=== PATIENT | male | born 1955 | race Caucasian/White ===

== ENCOUNTER 2016-07-03 08:54 | Outpatient (CLI) | payer MEDICARE ==
[~2016-07-03 08:54] MED LIST: ASPIRIN 325MG325 MG PO; ASPIRIN81 MG PO; BACTRIM 400 MG-1 TAB PO; BACTRIM DS 8001 TA1 PO; CIPRO 500MG TA500 MG PO; CIPROFLOXACIN500 MG PO; CLOPIDOGREL75 MG PO; COREG 12.5 MG12.5 MG PO; DIGITEK125 MCG PO; EFFIENT10 MG PO; JANUMET 1000 MG1 TAB PO; JARDIANCE10 MG PO; KEFLEX500 M1 PO; LEVAQUIN500 MG PO; LEVEMIR 10100 UNITS/ SC; LEVOTHYROXINE0.05 MG PO; LIPITOR20 MG PO; LISINOPRIL 10MG10 MG PO; METFORMIN HCL1000 MG PO; METFORMIN1000 MG PO; Novolog100 U/ML SC; SMZ-TMP 800 MG-1 TAB PO; TAMSULOSIN HYD0.4 MG PO; TESSALON PERLE100 M1 PO; WARFARIN SOD5 MG PO; XARELTO20 MG PO
[2016-09-28] MEDS ORDERED: PLAVIX 75MG TAB75 MG PO (14:11)
[2016-09-29] MEDS ORDERED: TAMSULOSIN HCL0.4 MG PO (10:34)
[2016-09-29] MEDS ORDERED: ATORVASTATIN 4040 MG PO (10:52)
[2016-09-29] MEDS ORDERED: WARFARIN SOD5 MG PO ×2 (11:12→11:13)
[2016-09-30] MEDS ORDERED: LEVAQUIN 750 M750 MG PO (09:11)
== END 2016-07-03 10:08 ==
LOC: ACC 08:54
DX: I48.2 Chronic atrial fibrillation (principal); Z79.01 Long term (current) use of anticoagulants; Z51.81 Encounter for therapeutic drug level monitoring
CPT/HCPCS: G0463

== ENCOUNTER → 2017-02-16 | Outpatient (CLI) | payer MEDICARE ==
[~2017-02-16] MED LIST changes: +ATORVASTATIN 4040 MG PO; +LEVAQUIN 750 M750 MG PO; +PLAVIX 75MG TAB75 MG PO; +TAMSULOSIN HCL0.4 MG PO
== END ==
LOC: LAB 16:58
DX: N39.0 Urinary tract infection, site not specified (principal)

== ENCOUNTER 2017-04-28 07:58 | Emergency (ER) | payer MEDICARE ==
[~2017-04-28] VITALS: Ht 193 cm; Wt 113.4 kg
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
--- OUTSIDE RECORDS SUMMARY | 2017-04-28 08:08 | External Medical Summary Rpt | CCD ---
Author Author , JOSE GARCIA Address Unknown Phone [email or web address] Purpose Continuity of Care Document - 10-12-2016 [...]
--- OUTSIDE RECORDS SUMMARY | 2017-04-28 08:09 | External Medical Summary Rpt | CCD ---
Demographics Preferred Language Nepali Marital Status Unknown Moravian Affiliation Unknown Race Unknown Ethnic Group Unknown Author Author JOES Address Unknown Phone [email or web address] Purpose Continuity of Care Document - through 2016
--- OUTSIDE RECORDS SUMMARY | 2017-04-28 08:09 | External Medical Summary Rpt | CCD ---
Demographics Preferred Language Latvian Marital Status Unknown Denominational Affiliation Unknown Race Unknown Ethnic Group Unknown Author Author JOSE Address Unknown Phone [email or web address] Purpose Continuity of Care Document - through 2016
--- OUTSIDE RECORDS SUMMARY | 2017-04-28 08:10 | External Medical Summary Rpt | CCD ---
Demographics Preferred Language Mozambican Marital Status Unknown Lutheran Affiliation Unknown Race Unknown Ethnic Group Unknown Author Author , JOSE GARCIA Address Unknown Phone Immunization Unable to retrieve immunization data due to connection failure with Immunization Registry. Please try again later.
--- OUTSIDE RECORDS SUMMARY | 2017-04-28 08:10 | External Medical Summary Rpt ---
Author Author JOSE Ramirez, JOSE Ramirez Organization [employer] Address Unknown Phone Unavailable
--- OUTSIDE RECORDS SUMMARY | 2017-04-28 08:10 | External Medical Summary Rpt ---
Author Author JOES Ramirez, JOSE Ramirez Organization [employer] Address Unknown Phone Unavailable
--- OUTSIDE RECORDS SUMMARY | 2017-04-28 08:10 | External Medical Summary Rpt | CCD ---
Demographics Preferred Language Kazakh Marital Status Unknown Buddhist Affiliation Unknown Race Unknown Ethnic Group Unknown Author Author , JOSE GARCIA Address Unknown Phone Immunization Unable to retrieve immunization data due to connection failure with Immunization Registry. Please try again later.
[2017-04-28 08:19] LABS: HEMOGLOBIN 14.8 g/dL (14.1-18.0); LYMPH # 1.6 K/mm3 (0.7-4.5); LYMPH % 12.5 % (10-50)
[2017-04-28 08:22] LABS: URINE BILIRUBIN - DIPSTICK NEGATIVE (NEG); URINE BLOOD 2+ (NEG)
--- NOTE | 2017-04-28 08:26 | Emergency Room Report ---
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 N Clinical Suspician of Infection? N Mental Status: 1 - Regular (Normal Baseline) Sepsis Risk:Low Sepsis Risk Have you (or family members/close friends) recently traveled outside the [place]? N If Yes, where/when: Have you had exposure to infectious disease within the past month? N TB? Other? Specify: Source patient, RN notes reviewed Exam Limitations no limitations Comment Pt reports having left flank pain since 6AM. Pt has Diabetes and a Neurogenic bladder and has to do self catheterization. No fevers at home but severe left flank pain. Last time this happened he had a UTI Cardiac Chest Pain Chest pain indicative of cardiac No ALLERGIES Coded Allergies: No Known Allergies (05/27/16) Home Medications Reported Medications Atorvastatin Calcium (Atorvastatin 40MG) 40 MG PO QHS CLOPIDOGREL BISULFATE (PLAVIX) 75 MG PO DAILY Carvedilol (Coreg 12.5Mg) 12.5 MG PO BID ASPIRIN (Aspirin 325MG) 325 MG PO DAILY METFORMIN HCL (Metformin) 1,000 MG PO BID Digoxin (Digitek) 125 MCG PO DAILY Empagliflozin (Jardiance) 10 MG PO DAILY Levothyroxine Sodium (Levothyroxine) 0.05 MG PO DAILY History Medical History General CAD? Yes Angina: Yes [place]: Yes Hypertension? Yes Hyperlipidemia? Yes CHF? Yes DVT? No PE? No COPD? No Asthma? No Anemia? No GERD? No Gastric ulcers? No GI Bleed? No Hernia? No Thyroid Problems? No Hypothyroidism? No CVA? No Seizures? No Diabetes? Yes Insulin Dependent: No Insulin Pump: No Home FSBS? Yes Renal Insuffiency? No End Stage Renal Disease? No UTI? Yes Stones? No BPH? No GB Disease: Yes Nephritic Syndrome? No Asplenia? No Hepatitis? No Sickle Cell Disease? No Arthritis? Yes Migraines? No Cataracts? No Glaucoma? No MRSA? No HIV? No TB? No Anxiety? No Depression? No Cancer? No More? Yes Additional hx: 1. AFIB. 2. ABSCESS OF KIDNEY Immunization Hx DT/Tetanus 1-4 Years Ago Flu Refused Pneumonia Refuses Surgical Hx Previous Surgery?Y CARDIAC STENTS X6 KNEE GALLBLADDER MULT FOOT SURGERIES (DM) L THRID TOE AMPUTATION Family History Family Hx Diabetes Yes CAD Yes Hypertension Yes Hyperlipidemia Yes Cancer Yes TB No Social History Smoking Hx Smoker: Never Smoker Tobacco: No Packs/day N/A Alcohol Alcohol: No Review of Systems All Other Systems Reviewed and Negative Constitutional see HPI Gastrointestinal see HPI Genitourinary see HPI. Physical Exam Vital Signs Vital Signs Date Time Temp Pulse Resp B/P Pulse O2 O2 Flow FiO2 Ox Delivery Rate 04/28 1145 91 18 159/75 97 04/28 1120 97 20 153/80 98 04/28 1013 94 20 128/56 94 04/28 0924 99 20 132/74 94 04/28 0922 22 04/28 0904 97.5 94 22 148/88 96 04/28 0827 20 04/28 0803 98.2 83 16 127/68 98 General Appearance moderate distress Respiratory Status No: respiratory distress. Lung Sounds bilateral: normal breath sounds. 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 Yes Jorge was queried for this patient? Yes Reference #: [id number] Risks/benefits of using a controlled substance for treatment were not discussed w/pt Results/Orders Laboratory Tests 04/28/17927: Sodium 138, Potassium 4.2, Chloride 102, Carbon Dioxide 24, BUN 18, Creatinine 1.1, Estimated Creat Clear 114, Estimated GFR (MDRD) 68, Glucose 148 H, Calcium 8.9, Total Bilirubin 1.3 H, AST 26, ALT 24, Alkaline Phosphatase 133 H, Total Protein 7.8, Albumin 2.9 L, Globulin 4.9 H, Albumin/Globulin Ratio 0.6 L, Digoxin 0.35 L 04/28/17 08: Urine Color YELLOW, Urine Appearance CLOUDY, Urine pH 6.0, Ur Specific [place] 1.015, Urine Protein TRACE H, Urine Ketones 1+ H, Urine Blood 2+ H, Urine Nitrate NEGATIVE, Urine Bilirubin NEGATIVE, Urine Urobilinogen 1.0, Ur Leukocyte Esterase 2+ H, Urine RBC 3-5, Urine WBC 10-20, Ur Squamous Epith Cells 5-10, Urine Bacteria 1+, Urine Glucose 3+ H 04/28/17 0810: WBC 12.9 H, RBC 4.73, Hgb 14.8, Hct 44.4, MCV 93.9, RDW 12.7, Plt Count 337, MPV 8.1, Gran % 80.4 H, Gran # 10.4 H, Lymphocytes % 12.5, Monocytes % 5.5, Eosinophils % 1.0, Basophils % 0.7, Lymphocytes # 1.6, Monocytes # 0.7, Eosinophils # 0.1, Basophils # 0.1, PUBS MCHC 33.3, MCH 31.3 H Current Medication Orders Sig/Leni Start time Last Medication Dose Route Stop Time Status Admin Iopamidol 75 ML ONCE ONE 04/28 1130 UNV 04/28 IV 04/28 1131 1100 Sodium Chloride 10 ML ONCE ONE 04/28 1130 UNV 04/28 IV 04/28 1131 1100 Ceftriaxone Sodium 0 .STK-MED ONE 04/28 1129 DC IV Sodium Chloride 50 ML .STK-MED ONE 04/28 1129 DC IV Ceftriaxone Sodium 1 GM ONCE ONE 04/28 1030 DC 04/28 Sodium Chloride 50 ML IV 04/28 1059 1143 Ondansetron HCl 0 .STK-MED ONE 04/28 0920 DC .ROUTE Morphine Sulfate 0 .STK-MED ONE 04/28 0919 DC .ROUTE Morphine Sulfate 4 MG ONCE ONE 04/28 0915 DC 04/28 IV 04/28 916 0922 Ondansetron HCl 4 MG ONCE ONE 04/28 0915 DC 04/28 IV 04/28 916 0922 Morphine Sulfate 2 MG ONCE ONE 04/28 0830 DC 04/28 IV 04/28 0831 0827 Morphine Sulfate 0 .STK-MED ONE 04/28 0825 DC .ROUTE Ondansetron HCl 4 MG ONCE ONE 04/28 0815 DC 04/28 IV 04/28 816 0816 Sodium Chloride 10 ML PRN PRN 04/28 0815 AC IV 04/29 0809 Sodium Chloride 1,000 ML .Q1H1M 04/28 0815 DC 04/28 IV 04/28 915 0827 Sodium Chloride 10 ML PRN PRN 04/28 815 AC IV 04/29 815 Ondansetron HCl 0 .STK-MED ONE 04/28 813 DC .ROUTE Sodium Chloride 1,000 ML .STK-MED ONE 04/28 813 DC IV Orders Procedure Date/time Status DIET-NOTHING BY MOUTH 04/28 L Active CULTURE, URINE 04/[address] ABD/PELVIS REQ 04/28 809 Complete IV SALINE LOCK 04/28 809 Active URINALYSIS/COMPLETE 04/28 809 Complete DIGOXIN 04/28 809 Complete CBC WITH AUTO DIFF 04/28 809 Complete CHEM 12 PROFILE 04/28 809 Complete XRAY/CT/US XRAY/CT/US CT abdomen, pelvis CT interpretation by discussed w/radiologist Time results known: 1039 CT Results Enlarged left kidney with some heterogeneous increased density along the mid and lower pole posteriorly. These findings are suspicious for renal neoplasm. Departure Departure Time of Disposition 1231 Disposition DC/XFER from ER to [facility]osp Clinical Impression Primary Impression: Renal hematoma, left Qualifiers: Encounter type: initial encounter Qualified Code: S37.012A - Minor contusion of left kidney, initial encounter Secondary Impressions: Neurogenic bladder Renal neoplasm Type 2 diabetes mellitus with unspecified complications Qualifiers: Diabetes mellitus chcf insulin use: without chcf use Qualified Code: E11.8 - Type 2 diabetes mellitus with unspecified complications Condition STABLE Additional Instructions Accepted in Transfer to [facility] by Dr. Hernadez, the Hospitalist for Dr. Solis who is covering for Dr. Garzon Discharge Counseling Counseled pt/family regarding diagnosis, test results, follow up needs ED Critical Care Critical Care No If Critical Care minutes are documented, the time involved in the performance of seperately reportable procedures was not counted toward critical care time documented. I directly delivered medical care to this critically ill and/or injured patient. Timely evaluation and treatment was necessary to address the significant organ system(s) dysfunction present in this patient. at 1233
--- NOTE | 2017-04-28 08:26 | Emergency Room Report ---
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 N Clinical Suspician of Infection? N Mental Status: 1 - Regular (Normal Baseline) Sepsis Risk:Low Sepsis Risk Have you (or family members/close friends) recently traveled outside the [place]? N If Yes, where/when: Have you had exposure to infectious disease within the past month? N TB? Other? Specify: Source patient, RN notes reviewed Exam Limitations no limitations Comment Pt reports having left flank pain since 6AM. Pt has Diabetes and a Neurogenic bladder and has to do self catheterization. No fevers at home but severe left flank pain. Last time this happened he had a UTI Cardiac Chest Pain Chest pain indicative of cardiac No ALLERGIES Coded Allergies: No Known Allergies (05/27/16) Home Medications Reported Medications Atorvastatin Calcium (Atorvastatin 40MG) 40 MG PO QHS CLOPIDOGREL BISULFATE (PLAVIX) 75 MG PO DAILY Carvedilol (Coreg 12.5Mg) 12.5 MG PO BID ASPIRIN (Aspirin 325MG) 325 MG PO DAILY METFORMIN HCL (Metformin) 1,000 MG PO BID Digoxin (Digitek) 125 MCG PO DAILY Empagliflozin (Jardiance) 10 MG PO DAILY Levothyroxine Sodium (Levothyroxine) 0.05 MG PO DAILY History Medical History General CAD? Yes Angina: Yes [place]: Yes Hypertension? Yes Hyperlipidemia? Yes CHF? Yes DVT? No PE? No COPD? No Asthma? No Anemia? No GERD? No Gastric ulcers? No GI Bleed? No Hernia? No Thyroid Problems? No Hypothyroidism? No CVA? No Seizures? No Diabetes? Yes Insulin Dependent: No Insulin Pump: No Home FSBS? Yes Renal Insuffiency? No End Stage Renal Disease? No UTI? Yes Stones? No BPH? No GB Disease: Yes Nephritic Syndrome? No Asplenia? No Hepatitis? No Sickle Cell Disease? No Arthritis? Yes Migraines? No Cataracts? No Glaucoma? No MRSA? No HIV? No TB? No Anxiety? No Depression? No Cancer? No More? Yes Additional hx: 1. AFIB. 2. ABSCESS OF KIDNEY Immunization Hx DT/Tetanus 1-4 Years Ago Flu Refused Pneumonia Refuses Surgical Hx Previous Surgery?Y CARDIAC STENTS X6 KNEE GALLBLADDER MULT FOOT SURGERIES (DM) L THRID TOE AMPUTATION Family History Family Hx Diabetes Yes CAD Yes Hypertension Yes Hyperlipidemia Yes Cancer Yes TB No Social History Smoking Hx Smoker: Never Smoker Tobacco: No Packs/day N/A Alcohol Alcohol: No Review of Systems All Other Systems Reviewed and Negative Constitutional see HPI Gastrointestinal see HPI Genitourinary see HPI. Physical Exam Vital Signs Vital Signs Date Time Temp Pulse Resp B/P Pulse O2 O2 Flow FiO2 Ox Delivery Rate 04/28 1145 91 18 159/75 97 04/28 1120 97 20 153/80 98 04/28 1013 94 20 128/56 94 04/28 0924 99 20 132/74 94 04/28 0922 22 04/28 0904 97.5 94 22 148/88 96 04/28 0827 20 04/28 0803 98.2 83 16 127/68 98 General Appearance moderate distress Respiratory Status No: respiratory distress. Lung Sounds bilateral: normal breath sounds. 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 Yes Jorge was queried for this patient? Yes Reference #: [id number] Risks/benefits of using a controlled substance for treatment were not discussed w/pt Results/Orders Laboratory Tests 04/28/17927: Sodium 138, Potassium 4.2, Chloride 102, Carbon Dioxide 24, BUN 18, Creatinine 1.1, Estimated Creat Clear 114, Estimated GFR (MDRD) 68, Glucose 148 H, Calcium 8.9, Total Bilirubin 1.3 H, AST 26, ALT 24, Alkaline Phosphatase 133 H, Total Protein 7.8, Albumin 2.9 L, Globulin 4.9 H, Albumin/Globulin Ratio 0.6 L, Digoxin 0.35 L 04/28/17 08: Urine Color YELLOW, Urine Appearance CLOUDY, Urine pH 6.0, Ur Specific [place] 1.015, Urine Protein TRACE H, Urine Ketones 1+ H, Urine Blood 2+ H, Urine Nitrate NEGATIVE, Urine Bilirubin NEGATIVE, Urine Urobilinogen 1.0, Ur Leukocyte Esterase 2+ H, Urine RBC 3-5, Urine WBC 10-20, Ur Squamous Epith Cells 5-10, Urine Bacteria 1+, Urine Glucose 3+ H 04/28/17 0810: WBC 12.9 H, RBC 4.73, Hgb 14.8, Hct 44.4, MCV 93.9, RDW 12.7, Plt Count 337, MPV 8.1, Gran % 80.4 H, Gran # 10.4 H, Lymphocytes % 12.5, Monocytes % 5.5, Eosinophils % 1.0, Basophils % 0.7, Lymphocytes # 1.6, Monocytes # 0.7, Eosinophils # 0.1, Basophils # 0.1, PUBS MCHC 33.3, MCH 31.3 H Current Medication Orders Sig/Leni Start time Last Medication Dose Route Stop Time Status Admin Iopamidol 75 ML ONCE ONE 04/28 1130 UNV 04/28 IV 04/28 1131 1100 Sodium Chloride 10 ML ONCE ONE 04/28 1130 UNV 04/28 IV 04/28 1131 1100 Ceftriaxone Sodium 0 .STK-MED ONE 04/28 1129 DC IV Sodium Chloride 50 ML .STK-MED ONE 04/28 1129 DC IV Ceftriaxone Sodium 1 GM ONCE ONE 04/28 1030 DC 04/28 Sodium Chloride 50 ML IV 04/28 1059 1143 Ondansetron HCl 0 .STK-MED ONE 04/28 0920 DC .ROUTE Morphine Sulfate 0 .STK-MED ONE 04/28 0919 DC .ROUTE Morphine Sulfate 4 MG ONCE ONE 04/28 0915 DC 04/28 IV 04/28 916 0922 Ondansetron HCl 4 MG ONCE ONE 04/28 0915 DC 04/28 IV 04/28 916 0922 Morphine Sulfate 2 MG ONCE ONE 04/28 0830 DC 04/28 IV 04/28 0831 0827 Morphine Sulfate 0 .STK-MED ONE 04/28 0825 DC .ROUTE Ondansetron HCl 4 MG ONCE ONE 04/28 0815 DC 04/28 IV 04/28 816 0816 Sodium Chloride 10 ML PRN PRN 04/28 0815 AC IV 04/29 0809 Sodium Chloride 1,000 ML .Q1H1M 04/28 0815 DC 04/28 IV 04/28 915 0827 Sodium Chloride 10 ML PRN PRN 04/28 815 AC IV 04/29 815 Ondansetron HCl 0 .STK-MED ONE 04/28 813 DC .ROUTE Sodium Chloride 1,000 ML .STK-MED ONE 04/28 813 DC IV Orders Procedure Date/time Status DIET-NOTHING BY MOUTH 04/28 L Active CULTURE, URINE 04/[address] ABD/PELVIS REQ 04/28 809 Complete IV SALINE LOCK 04/28 809 Active URINALYSIS/COMPLETE 04/28 809 Complete DIGOXIN 04/28 809 Complete CBC WITH AUTO DIFF 04/28 809 Complete CHEM 12 PROFILE 04/28 809 Complete XRAY/CT/US XRAY/CT/US CT abdomen, pelvis CT interpretation by discussed w/radiologist Time results known: 1039 CT Results Enlarged left kidney with some heterogeneous increased density along the mid and lower pole posteriorly. These findings are suspicious for renal neoplasm. Departure Departure Time of Disposition 1231 Disposition DC/XFER from ER to [facility] Clinical Impression Primary Impression: Renal hematoma, left Qualifiers: Encounter type: initial encounter Qualified Code: S37.012A - Minor contusion of left kidney, initial encounter Secondary Impressions: Neurogenic bladder Renal neoplasm Type 2 diabetes mellitus with unspecified complications Qualifiers: Diabetes mellitus longterm insulin use: without longterm use Qualified Code: E11.8 - Type 2 diabetes mellitus with unspecified complications Condition STABLE Additional Instructions Accepted in Transfer to [facility] by Dr. Hernadez, the Hospitalist for Dr. Solis who is covering for Dr. Garzon Discharge Counseling Counseled pt/family regarding diagnosis, test results, follow up needs ED Critical Care Critical Care No If Critical Care minutes are documented, the time involved in the performance of seperately reportable procedures was not counted toward critical care time documented. I directly delivered medical care to this critically ill and/or injured patient. Timely evaluation and treatment was necessary to address the significant organ system(s) dysfunction present in this patient. at 1233
--- NOTE | 2017-04-28 10:01 | RADIOLOGY REPORT PS360 ---
CT ABD PELVIS W/O CONTRAST CLINICAL INDICATION: Left flank pain with nausea and vomiting LEFT FLANK PAIN ORDERING PHYSICIAN: Leo Martinez MD PATIENT AGE: 61 years COMPARISON: 05/30/2015 TECHNIQUE: Axial images obtained with sagittal and coronal reformats. PROCEDURE: Oral Contrast: None IV Contrast: None . FINDINGS: Lung bases are clear. There has been prior cholecystectomy. No biliary dilatation. The caudate lobe of the liver is slightly enlarged and heterogeneous. Spleen is also mildly enlarged at 14 cm. The pancreas and adrenal glands are unremarkable. The left kidney is enlarged with heterogeneous somewhat increased density along the lower pole suspicious for left renal mass. It is difficult to quantify the size of the lesion. Hyperdensity is present along the posterior aspect of the left kidney. Suggest CT of the kidneys with contrast for further evaluation. There is mild stranding of the left perinephric renal fat. No hydronephrosis or obstructing ureteral calculus is evident. Small exophytic right renal cyst is noted. There are few scattered small lymph nodes in the retroperitoneum. No evidence of appendicitis, intestinal obstruction, or free air. No evidence of diverticulitis. The urinary bladder is slightly distended. No acute bony anomalies. IMPRESSION: 1. Enlarged left kidney with some heterogeneous increased density along the mid and lower pole posteriorly. The findings are suspicious for renal neoplasm. There could be some degree of intraparenchymal hemorrhage with the heterogeneous increased density. CT of the kidneys with contrast suggested with 3 phase imaging. There is some mild stranding left perinephric renal fat. Renal infection is felt to be less likely . No hydronephrosis or renal calculi evident. 2. Somewhat heterogeneous appearing slightly enlarged caudate lobe of the liver with mild splenomegaly. This may be seen with portal hypertension. This could be better evaluated with enhanced exam as well.
--- NOTE | 2017-04-28 11:56 | RADIOLOGY REPORT PS360 ---
CT ABD PELVIS W/WO CONTRAST INDICATION: ] Was PT STATES PAIN AROUND LEFT KIDNEY, N/V SINCE 6 A.M. TODAY ORDERING PHYSICIAN: Leo Martinez MD PATIENT AGE: 61 years COMPARISON: None TECHNIQUE: Axial images are obtained following the intravenous administration of 75 mL's of Isovue-370. Images are obtained at 30 seconds, 60 seconds, 10 minutes, and 40 minutes delayed. Contrast. Sagittal and coronal reformatted images are reviewed as well. FINDINGS: There is a 11 x 5 cm area of decreased density oval in nature and peripheral in nature involving the left kidney posteriorly and inferiorly causing concavity of the renal parenchyma consistent with a subcapsular hematoma which corresponds to the area of slight increased density on the unenhanced exam. In addition, there is decreased attenuation involving the superior pole of the left kidney somewhat heterogeneous in nature. This area measures 5 7-m transverse and 3 cm cephalad to caudad. This could be related to an area of neoplasm or polynephritis. This area was not present on the previous unenhanced exam of 05/30/2015. Delayed images showing minimal excretion of contrast from the left kidney There is mild stranding of the left perinephric renal fat but no evidence of perinephric hematoma. The left kidney is slightly displaced anteriorly. No filling defects are evident within the left renal vein. No evidence of abdominal aortic aneurysm or dissection. No intestinal obstruction or free air. The urinary bladder is mildly distended. IMPRESSION: Enlarged left kidney with findings consistent with a subcapsular hematoma. Decreased attenuation noted along the superior pole of the left kidney which may be related to neoplasm or even pyelonephritis/lobar nephronia. No obvious abscess.. There is only minor excretion of contrast from the left kidney. Significant findings called to Leo Martinez MD on 04/28/2017 11:50 AM.
[2017-04-28 17:46] VITALS: BP 164/72
== END 2017-04-28 17:55 | disposition short-term general hospital (02) ==
LOC: ER 07:58
PROVIDERS: General Practice
DX: S37.012A Minor contusion of left kidney, initial encounter (principal); N31.9 Neuromuscular dysfunction of bladder, unspecified; E11.8 Type 2 diabetes mellitus with unspecified complications; Z79.82 Long term (current) use of aspirin; Z79.84 Long term (current) use of oral hypoglycemic drugs
CPT/HCPCS: J2405; Q9967

== ENCOUNTER → 2017-05-16 | Outpatient (CLI) | payer MEDICARE ==
[2017-05-16 09:16] LABS: BUN 15 mg/dL (7-18)
[2017-05-16 09:17] LABS: GFR (ESTIMATED) 68 ML/MIN (>60)
--- NOTE | 2017-05-18 05:32 | RADIOLOGY REPORT PS360 ---
CT ABD PELVIS W/WO CONTRAST INDICATION: RENAL MASS, HEMATURIA ORDERING PHYSICIAN: Peter Garzon MD PATIENT AGE: 62 years COMPARISON: 04/28/2017 TECHNIQUE: Axial images are obtained without and with 75 mL's of Isovue-370. Immediate and delayed post enhanced images are obtained.. Sagittal and coronal reformatted images are reviewed as well. FINDINGS: The remains enlarged left kidney with a subcapsular lentiform collection along the posterior aspect of the left kidney. This measures 12 cm cephalad to caudad, 7.47 m transverse, and 5.4 cm AP. This previously measured 10 x 7.5 x 4.6 cm in similar dimensions. This is slightly hyperdense centrally and does not show contrast enhancement and is consistent with a subcapsular hematoma which is slightly increased in size compared to the previous exam. The previously noted low attenuation within the superior aspect of the renal parenchyma does appear somewhat less apparent but still persists. There has been a prior cholecystectomy. The liver, spleen, adrenal glands, and right kidney have an unremarkable appearance. No hydronephrosis. No ureteral calculi. Urinary bladder wall is thickened. No acute bony anomalies. IMPRESSION: 1. Persistent hypoattenuation involving the left kidney posteriorly in the subcapsular region indenting the renal cortex consistent with a subcapsular hematoma which is slightly increased in size since the previous exam. No perinephric fluid collection evident. 2. Low-density changes in the superior aspect of the left kidney are somewhat less apparent and may been due to underlying edema or infection. 3. Recommend continued follow-up to show resolution of the subcapsular hematoma. 4. Thickened urinary bladder wall nonspecific
== END ==
LOC: RAD 08:50
PROVIDERS: Urology
DX: N31.9 Neuromuscular dysfunction of bladder, unspecified (principal); R31.9 Hematuria, unspecified
CPT/HCPCS: Q9967